=== PATIENT | female | born 1990 | race Caucasian/White ===

== ENCOUNTER 2020-09-07 10:38 | Outpatient (CLI) | payer OTHER, SELFPAY ==
--- NOTE | ~2020-09-07 | US_ITS ---
EXAMINATION: US OB follow up DATE: 09/07/2020 11:23 INDICATION: Incomplete anatomic survey TECHNIQUE: Real-time ultrasound of the pelvis was performed. The interpreting radiologist was not pre sent for the study. COMPARISON: None. FINDINGS: There is a single living fetus in vertex presentation. The placenta is anterior and not low-lying wi th caudal margin 9.7 cm from the internal cervical os. heart rate is 133 beats per minute (bpm) . The amniotic fluid is subjectively normal. The following anatomy was identified as normal: Nasal bone and upper lip Heart cord insertion The following biometric data were obtained: BPD: 6.1 cm -> 24 weeks 6 days Head circumference: 23.5 cm -> 25 weeks 4 days Abdominal circumference: 20.4 cm -> 25 weeks 0 days Femur length: 4.7 cm -> 25 weeks 4 days These measurements are concordant. Head circumference to abdominal circumference ratio: 1.15 (normal range 1.04-1.22). Estimated weight: 788 g (+/-) 118 g. or 1 lbs. 12 oz. (+/-) 4 oz. IMPRESSION: 1. Single living fetus in vertex presentation with heart rate of 133 bpm. 2. Gestational age by ultrasound of 25 weeks 2 day(s) +/- 1 week(s) 5 day(s) with ultrasound estimate d date of delivery (MARTELL) of 12/19/2020. Estimated weight is 58th percentile by Hadlock criteria when 12/22/2020 is used as the MARTELL. Please correlate with clinical information or earlier ultrasounds for most accurate MARTELL. 3. Normal heart, nasal bone, upper lip and cord insertion. Reviewed, dictated and finalized at location A. [employer] IMPRESSION: 1. Single living fetus in vertex presentation with heart rate of 133 bpm. 2. Gestational age by ultrasound of 25 weeks 2 day(s) +/- 1 week(s) 5 day(s) wi th ultrasound estimated date of delivery (MARTELL) of 12/19/2020. Estimated we ight is 58th percentile by Hadlock criteria when 12/22/2020 is used as the MARTELL. Please correlate with clinical information or earlier ultrasounds for most accu rate MARTELL. 3. Normal heart, nasal bone, upper lip and cord insertion.
== END 2020-09-07 10:39 | disposition home or self-care (01) ==
LOC: ANHIMG 10:45
PROVIDERS: PCP Internal Medicine; Visit Provider Obstetrics & Gynecology
DX: Z36.89 Encounter for other specified antenatal screening (principal); Z3A.25 25 weeks gestation of pregnancy
CPT/HCPCS: 76816

== ENCOUNTER 2020-12-14 09:07 | Outpatient (CLI) | payer OTHER, SELFPAY ==
[2020-12-14 09:29] LABS: Hematocrit 35.7 % (37.0-47.0); Mean Corpuscular HGB Conc 33.6 g/dl (32-36); Mean Corpuscular Hemoglobin 29.5 pg (26-34); Mean Corpuscular Volume 87.7 fl (80-100); Mean Platelet Volume 9.7 fl (7.4-10.4); Platelet Count Result 220 k/mm3 (150-375); Red Blood Count 4.07 M/mm3 (4.2-5.4); Red Cell Distribution Width 12.5 % (11.5-14.5); White Blood Count 10.7 K/mm3 (4.5-10.0)
[2020-12-14 13:55] LABS: Rapid Plasma Reagin Non-Reactive (NonReactive)
== END 2020-12-14 09:08 | disposition home or self-care (01) ==
PROVIDERS: PCP Internal Medicine; Visit Provider Obstetrics & Gynecology
DX: Z01.812 Encounter for preprocedural laboratory examination (principal); O34.219 Maternal care for unspecified type scar from previous cesarean delivery; Z3A.39 39 weeks gestation of pregnancy
CPT/HCPCS: 36415; 85027; 86592; 86850; 86900; 86901

== ENCOUNTER 2020-12-15 11:28 | Inpatient (IN) | payer OTHER, SELFPAY ==
[2020-12-15] VITALS (47 sets, daily range): BP systolic 86–142; BP diastolic 47–88; PULSE 67–138; RESP 15–18; TEMP 36.6–37.2; O2SAT 99–100; BMI 34.5
[2020-12-15] MEDS: LACTATED RINGERS 1,000 ML 125 ML IV CONT ×2 (12:21→13:34)
--- NOTE | 2020-12-15 12:48 | LDADM ---
This patient, Estrella Eastman, was admitted to Labor/Delivery/Recovery 118 on 12/15/20 at 11:28 for repeat section and bilateral tubal ligation. Plans for surgery/ and pain management were discussed with patient. Patient/family oriented to hospital policies and general routines including ID bracelet, bed and alarms, visiting hours, pain management, procedures, bathroom and other care routines, personal items, smoking policy, room service/diet and guest tray routines, infant security routines, and visiting hours. Patient/Family are encouraged to report perceived risks to care and to ask questions if they do not understand what they are told or what they should do. See OBIX for further documentation.
--- NOTE | 2020-12-15 13:57 | WPDANESEPPF ---
Anes - Initial Pre Proc Eval Procedure: Operation Date: 12/15/20 13:30 Proposed Procedures p Repeat Section - Brad Stephenson MD Date/Time: 12/15/20 13:57 Surgeon: Brad Stephenson MD Pre Op Diagnosis: c/s Patient Data Age: 30 Gender: F Height: 5 ft 3 in Weight: 88.5 kg Last Vital Signs Temp 37.2 C 12/15/20 11:45 Pulse 90 12/15/20 12:16 Resp 16 12/15/20 11:45 BP 109/59 L 12/15/20 12:16 Allergies Allergy/AdvReac Type Severity Reaction Status Date / Time No Known Allergies Allergy Verified 12/15/20 12:43 Home Medications Medication Instructions Recorded Confirmed Type No Home Medications 11/22/20 11/22/20 History Patient hx anesthesia problems: none Family hx anesthesia problems: none PMF Family History Family History Other No pertinent family history Social History Social History Smoking status: Never smoker Second hand tobacco smoke exposure: No Substance use: never Gender identity (if verbalized by the patient): Female Spiritual care concerns: No Anes - Eval Final PreProcedure Day of Procedure 12/15/20 13:57 Patient weight: obese Heart: regular rate and rhythm Lungs: clear to auscultation Airway: Mallampati scale class II Neurological: alert and oriented Last oral intake: >/= 8 hours ASA classification: II Emergent: no Anesthetic plan: proceed Anesthesia type and monitoring: regional spinal and standard monitoring Informed Consent: The patient's anesthetic plan and its attendant risks and benefits were discussed with the patient/family/POA. Questions were solicited and answers provided to the satisfaction of the patient/family/POA.
--- NOTE | 2020-12-15 13:59 | PM.IMHP ---
H&P: HPI History of Present Illness Date/Time: 12/15/20 13:59 30 y/o at 39 weeks here for repeat . Also desires permanent contraception with concurrent bilateral tubal ligation. GBS neg. Chief Complaint: Here for c section Review of Systems Review of Systems: All systems reviewed & are unremarkable except as noted in HPI and below PMFSH Surgical History Surgical History History of delivery Family History Family History Other No pertinent family history Social History Social History Smoking status: Never smoker Second hand tobacco smoke exposure: No Substance use: never Gender identity (if verbalized by the patient): Female Spiritual care concerns: No Meds Home Medications and Allergies Home Medications Medication Instructions Recorded Confirmed Type No Home Medications 11/22/20 11/22/20 History Allergies Allergy/AdvReac Type Severity Reaction Status Date / Time No Known Allergies Allergy Verified 12/15/20 12:43 Vital Signs Vital Signs - 24 hr 12/15/20 11:45 12/15/20 11:46 12/15/20 12:02 Temperature 37.2 C Pulse Rate 91 115 H 121 H Respiratory Rate 16 Blood Pressure 125/68 125/64 110/53 L 12/15/20 12:16 Temperature Pulse Rate 90 Respiratory Rate Blood Pressure 109/59 L Exam Const: Orientation/consciousness: patient oriented x3 Other: Well-developed, well-nourished female in no acute distress. Neck: Thyroid: thyroid normal Lymphatic: no lymphadenopathy noted (in neck, axilla or inguinal nodes) Resp: Effort & Inspection: normal respiratory effort Auscultation: clear to auscultation bilaterally Cardio: Rate: regular rate Rhythm: regular rhythm Heart sounds: S1 normal heart sound present and S2 normal heart sound present GI: Other: ABD: Soft, nontender, nondistended, gravid. NST reactive. TOCO: no contractions. No guarding or rebound tenderness. No hepatosplenomegaly. : General: Yes no CVA tenderness Other: Cervix closed, thick. Back/Spine/Pelvis: Back: no CVA tenderness Skin: General skin exam: normal color and no rashes or lesions noted Neuro: General: patient oriented x3 Extrem: Other: Extremities: nontender with no edema Psych: Mental Status: mental status grossly normal Affect: normal affect Assessment and Plan Assessment and plan (1) History of delivery: Code(s): Z98.891 - History of uterine scar from previous surgery Status: Inactive Assessment and Plan: A: IUP at 39 weeks with prior , desiring repeat. Also would like permanent contraception with tubal ligation. P: She understands there are temporary methods of contraception available to her. She understands that there are nonsurgical options as well as surgical options. She understands that tubal ligation will render her permanently sterile. She understands that there is a failure rate associated with tubal ligation, as well as an inherent ectopic gestation risk. Furthermore, she understands risks of surgery to include risks of anesthesia, risks of pain, infection, bleeding, blood products, thromboembolic phenomena and damage to adjacent structures such as bowel, bladder, ureters, blood vessels and nerves. She understands all these risks and elects to proceed with repeat low transverse delivery with concurrent bilateral tubal ligation. She has received the ACOG pamphlet on surgical sterilization. (2) Unwanted fertility: Code(s): Z30.09 - Encounter for other general counseling and advice on contraception Status: Acute
--- NOTE | 2020-12-15 14:02 | WPDHPUPDATE1 ---
History and Physical Update Update Date/Time: 12/15/20 14:02 History and Physical has been reviewed, including an updated exam of the patient. There are NO changes in the patient's condition. Risks, benefits, and alternatives have been discussed and questions answered. Patient agrees to proceed with procedure.
[2020-12-15] MEDS: ceFAZolin 2 GM/D5W 50 ML 2 GM/50 ML BAG IVPB (14:25)
--- NOTE | 2020-12-15 15:27 | P.PCNOB_ITS ---
OB - Delivery Note Procedure Procedure: Procedures Operation Date: 12/15/20 13:30 Actual Procedures Side Surgeon p Repeat Section and Bilateral Tubal Ligation Bilateral Brad Stephenson MD Repeat low transverse delivery with concurrent bilateral tubal ligation via modified Monik technique Delivery monitor: external FHT and external uterine Route of delivery: Specimen: Yes (cord blood, segments of bilateral Fallopian tubes) Quantitative Blood Loss (ml): 650 Anesthesia type: Spinal Disposition: PACU Complications: None Narrative: The patient was taken to the operating room where she was prepared and draped in the usual sterile fashion in dorsal supine position with a leftward tilt. She received cefazolin preoperatively. Spinal anesthesia was found to be adequate. A Pfannenstiel skin incision was made along the previous scar line and was carried through to the underlying layer of the fascia. The fascia was incised in the midline and the incision was extended laterally. The fascia was dissected free of the underlying rectus muscles. The rectus muscles were in the midline. The peritoneum was identified, tented up and entered sharply. The peritoneal incision was extended superiorly and inferiorly with good visualization of the bladder. The bladder blade was placed. The vesicouterine peritoneum was identified, tented up and entered sharply. The i ncision was extended laterally and the bladder flap was developed. The bladder blade was replaced. The uterus was then incised sharply in a transverse fashion along the lower uterine segment. The incision was extended laterally. The 's head was delivered atraumatically to the sterile field, followed by the body. The nose and mouth were bulb suctioned. After a delay, the cord was clamped and cut. The was handed off the field. Cord blood was collected. The placenta was removed manually and was passed off the field. The uterus was exteriorized and cleared of all clots and debris. The uterine incision was reapproximated using 0 Monocryl in a running, locked fashion. Excellent hemostasis resulted as did excellent reapproximation of the normal anatomy. The left fallopian tube was then identified by following it out to the fimbriated end. It was grasped in the midportion with a [place]lington clamp and a loop of tube was ligated with a free tie of 0 plain gut. The tubal segment was then transected and the specimen was passed off to be sent to pathology. Hemostasis was excellent. Attention was turned to the right fallopian tube which was similarly identified, ligated and transected. Once again, excellent hemostasis resulted. The uterus was returned the abdomen. The pelvis was irrigated copiously with warmed normal saline. Rigorous hemostasis was assured. The fascial layer was reapproximated using 0 Vicryl in a running fashion. The skin was closed with a running, subcuticular stitch of 4 0 Vicryl. Dermaflex was applied externally. Sponge, lap, needle and instrument counts were correct. The patient was taken to the recovery room in stable condition. The went to the nursery in stable condition. I was present and scrubbed the entire procedure. [place] [facility] Date of : 12/15/20 Time of : 14:54 Weeks of gestation at delivery: 39 gender: Female Weight (pounds): 7 Weight (ounces): 4 presentation: vertex Placenta delivery description: Manual Removal and Normal Configuration cord vessel description: 3 Vessels and Delayed Cord Clamping score one minute: 9 score five minutes: 9
--- NOTE | 2020-12-15 15:29 | PM.OBDSVD ---
DS: Admitting Diagnosis Admitting Diagnosis Admitting Diagnosis: IUP at 39 weeks Prior Desired sterility DS: Discharge Diagnosis Discharge Diagnosis (1) History of delivery: Code(s): Z98.891 - History of uterine scar from previous surgery Status: Acute (2) Unwanted fertility: Code(s): Z30.09 - Encounter for other general counseling and advice on contraception Status: Acute OB - DS: Summary OB Procedures : None OB Procedures Intrapartum: OB Procedures: : None Peripartum Data Procedures: Procedures Operation Date: 12/15/20 13:30 Actual Procedures Side Surgeon p Repeat Section and Bilateral Tubal Ligation Bilateral Brad Stephenson MD Discharge Plan Discharge Attending physician on discharge: Brad Stephenson Consulting providers: Magdaleno Hudson Discharging Clinician: Brad Stephenson Patient Disposition: Home, Self-Care Activity: may shower, may drive after 2 weeks and pelvic rest Diet: regular Wound Care Instructions: incision open to air Discharge Instructions: Education: Mom and Baby Guide Given to: Mother Follow-Up: Call your delivering provider's office for an appointment to be seen in: 1 Week Mom and baby should come to the [facility] for the follow-up appointment. Appointment Date/Time: December 18, 2020 at 11:00 am What to expect at your follow-up visit: Blood Pressure Check Call [phone] if you are unable to keep your appointment time. BREAST CARE: * Wear a snug supportive bra. * For engorgement discomfort: Bottle Feeding: * May apply ice packs ABDOMINAL INCISION: (if applicable) * Allow incision to air dry * Do NOT use lotions for powders on your incision * When showering, allow soap and water to run over the incision, but do not wash incision PERINEAL CARE: * Until bleeding stops, use your page bottle after urinating * Change your pad frequently throughout the day * No tub baths until seen by your physician - You may shower ACTIVITY: * Rest as much as possible. * Do not exercise or lift anything heavier than your baby (such as laundry or other children.) * Avoid stairs or driving as much as possible. * Do not put anything into the vagina. No douching, tampons, or sexual activity until seen by physician. NOTIFY PHYSICIAN IF YOU HAVE ANY QUESTIONS OR IF ANY OF THE FOLLOWING SYMPTOMS OCCUR: * If your iincision becomes red, swollen, or more painful than what you have experienced in the hospital. * If your vaginal bleeding becomes foul smelling. * If your vaginal bleeding becomes more heavy than a period or if your bleeding changes from pink to bright red. However, you may pass an occasional walnut-sized clot once or twice for the first week . * If you experience a sharp, shooting pain in you calves. * If you discover a hard, reddened area on your breast or if you experience flu-like symptoms. *If you have a fever of 100.4 or greater DIET: * Eat regular, well-balanced meals. * Drink plenty of fluids daily. If , drink to thirst.Call or return if temperature above 100.4? F, increased abdominal pain, increased vaginal bleeding or any new problems. Stand Alone Forms: General Discharge Information Follow-up/Referrals: Brad Stephenson MD [Physician] - 4 Weeks Discharge Medications: New ibuprofen 600 mg tablet 600 mg PO Q6H PRN (Reason: cramps) Qty: 30 RF: 0 hydrocodone-acetaminophen 5-325 mg tablet 1 - 2 tablet PO Q6H PRN (Reason: pain) Qty: 30 RF: 0 No Action No Home Medications RF: 0 Date of admission: 12/15/20 11:28 Primary Care Provider: Luke Moreno Admitting Provider: Brad Stephenson Attending physician on admission: Ab Frost Condition: Stable
--- NOTE | 2020-12-15 16:18 | SUR.PHASEI ---
Dr. Stephenson returned page and informed pt had voided just prior to going back to OR and had not had anything to eat or drink since a bowl of cereal last night at 2130. Initial urine output in recovery was 25 ml and pt just had another 30 ml yellow urine in just under an hour. Order received for 500 ml of LR bolus.
[2020-12-15] MEDS: LACTATED RINGERS 1,000 ML 999 ML IV CONT (16:48)
[2020-12-15] MEDS: OXYTOCIN 30 UNITS/NS 500 ML 30 UNITS/500 ML BAG 125 UNITS IV CONT (16:48)
[2020-12-15] MEDS: ONDANSETRON INJ 4 MG/2 ML VIAL IV PUSH (17:16)
[2020-12-15] MEDS: diphenhydrAMINE HCl INJ 50 MG/ML VIAL 25 MG IV PUSH (18:00)
--- NOTE | 2020-12-15 18:12 | OBPPTRN ---
Patient transferred to post room #286 via stretcher. Support person present. Oriented to unit, room, information board, rooming in, admission packet and security measures. Patient verbalizes understanding.
[2020-12-15] MEDS: SCOPOLAMINE 1.5 MG PATCH TRANSDERM (19:01)
[2020-12-15] MEDS: KETOROLAC 30 MG/ML VIAL (*BKC) IV PUSH (19:04)
[2020-12-15] MEDS: DEXTROSE 5%/0.45% SOD CHL 1,000 ML 125 ML IV CONT (21:27)
[2020-12-15] MEDS: HYDROcodone/acetaminophen (*CRX) 5-325 MG TABLET 1 TAB PO (22:30)
[2020-12-16 04:00] VITALS: BP 100/51; PULSE 73; RESP 16; TEMP 36.8; O2SAT 97
[2020-12-16] MEDS: HYDROcodone/acetaminophen (*CRX) 5-325 MG TABLET 1 TAB PO ×4 (05:26→17:59)
[2020-12-16] MEDS: IBUPROFEN 600 MG TABLET PO ×3 (05:26→17:59)
[2020-12-16 05:38] LABS: Basophils Percent Auto 0.1 % (0.2-1.2); Hematocrit 29.6 % (37.0-47.0); Immature Granulocyte Absolute 0.15 K/mm3 (0.00-0.031); Immature Granulocyte Percent A 0.9 % (0-0.5); Lymphocytes Absolute Auto 1.38 K/mm3 (0.9-3.2); Lymphocytes Percent Auto 7.8 % (18.3-44.2); Mean Corpuscular HGB Conc 33.8 g/dl (32-36); Mean Corpuscular Hemoglobin 30.4 pg (26-34); Monocytes Absolute Auto 1.1 K/mm3 (0.1-0.6); Monocytes Percent Auto 6.1 % (2.6-8.5); Neutrophils Percent Auto 85.1 % (45.5-73.1); Platelet Count Result 188 k/mm3 (150-375); Red Blood Count 3.29 M/mm3 (4.2-5.4); Red Cell Distribution Width 12.7 % (11.5-14.5); White Blood Count 17.6 K/mm3 (4.5-10.0)
--- NOTE | 2020-12-16 07:30 | PC.NURSE ---
PT introductions made and plan of care discussed per post op c section, pain management, bottle feeding, daily care activities. PT verbalized understanding of such care. Will continue to educate pt according to maternal child guide and policy. no barriers to learning noted and discussion will be one to one. PT verbalized understanding of such care.
[2020-12-16 07:40] VITALS: BP 102/48; PULSE 51; RESP 18; TEMP 36.5; O2SAT 98
--- NOTE | 2020-12-16 07:45 | WPDANLDPN2 ---
Anes-Prog Note L&D Date/Time: 12/16/20 07:45 Comfortable throughout: section Neuraxial method: spinal Epidural/Spinal procedure site: clean & non-tender Neuro status: Neuro function grossly intact. Cardiovascular status: normal Respiratory status: normal Airway patency: baseline Mental status: baseline Post-Op hydration status: normal Vital Signs: Last Vital Signs Temp 36.8 C 12/16/20 04:00 Pulse 73 12/16/20 04:00 Resp 16 12/16/20 04:00 BP 100/51 L 12/16/20 04:00 Pulse Ox 97 12/16/20 04:00 Pain score (VAS): 3 I/O: Intake & Output 12/15/20 12/15/20 12/16/20 15:59 23:59 07:59 Intake Total 1050 1200 1980 Output Total 137 386 0288 Balance 615 309 173 Post-procedural complaints: none Patient feedback: Patient satisfied with anesthetic care.
--- NOTE | 2020-12-16 07:45 | WPDANLDNPN2 ---
Anes-Prog Note L&D-Neuraxial Date/Time: 12/16/20 07:45 Neuraxial medications: intrathecal PF morphine Opiod-related complaints: none Patient feedback: Patient satisfied with post-operative pain management.
[2020-12-16] MEDS: SIMETHICONE 80 MG TAB.CHEW PO ×3 (09:11→17:58)
[2020-12-16] MEDS: DOCUSATE SODIUM 100 MG CAPSULE PO ×2 (09:12→17:59)
[2020-12-16 09:14] VITALS: PULSE 51; RESP 18; O2SAT 98
[2020-12-16 12:02] VITALS: BP 118/58; PULSE 51; RESP 16; TEMP 36.6; O2SAT 98
--- NOTE | 2020-12-16 12:41 | P.PNOB_ITS ---
OB - PN: Subj Subjective Date/time seen: 12/16/20 12:41 Narrative: Pain OK. Tolerating diet. OB - PN: Obj Data Labs CBC & Chem 7: 12/16/20 05:21 Labs: Laboratory Results - last 24 hr 12/16/20 05:21 WBC 17.6 H RBC 3.29 L Hgb 10.0 L Hct 29.6 L MCV 90.0 MCH 30.4 MCHC 33.8 RDW 12.7 Plt Count 188 MPV 10.0 Immature Gran % (Auto) 0.9 H Neut % (Auto) 85.1 H Lymph % (Auto) 7.8 L [place] % (Auto) 6.1 Eos % (Auto) 0.0 Baso % (Auto) 0.1 L Lymph # (Auto) 1.38 [place] # (Auto) 1.1 H Eos # (Auto) 0.0 Baso # (Auto) 0.0 Abs Immat Gran (auto) 0.15 H Absolute Neuts (auto) 15.0 H Absolute Nucleated RBC 0.0 Nucleated RBC % 0.0 OB - PN A/P Plan Comments: A: POD#1, doing well. P: Routine care. Exam Narrative: Exam Narrative: AVSS I/O OK ABD soft, nontender, fundus firm. Incision c/d/i. EXT nontender
[2020-12-16 20:10] VITALS: BP 104/60; PULSE 63; RESP 16; TEMP 36.4; O2SAT 99
[2020-12-17] MEDS: IBUPROFEN 600 MG TABLET PO ×2 (00:10→10:32)
[2020-12-17] MEDS: ACETAMINOPHEN 325 MG TABLET 650 MG PO ×2 (00:10→10:31)
--- NOTE | 2020-12-17 07:20 | PM.OBDSVD ---
DS: Admitting Diagnosis Admitting Diagnosis Admitting Diagnosis: repeat section at term OB - DS: Summary OB Procedures : None OB Procedures Intrapartum: OB Procedures: : None Peripartum Data Infant Delivery Method: Section Procedures: Procedures Operation Date: 12/15/20 13:30 Actual Procedures Side Surgeon p Repeat Section and Bilateral Tubal Ligation Bilateral Brad Stephenson MD complications: none Status at Discharge Functional status at discharge: independent ambulation Overall status at discharge: patient is progressing back to baseline Time Spent with Patient Time attestation: Total time spent providing and/or coordinating discharge services: Time spent: Less than 30 minutes Exam Const: General: comfortable and no acute distress Resp: Effort & Inspection: normal respiratory effort Auscultation: clear to auscultation bilaterally Cardio: Rate: regular rate GI: Inspection: non-distended GI Palp: Yes Soft to palpation, No Firmness to palpation present (GI), Yes Tenderness to palpation present (GI) (mild tenderness over incision ) and No Guarding due to palpation present (GI) Auscultation: normal bowel sounds Psych: Appearance: grossly normal Mental Status: mental status grossly normal DS: Data Data Completed and Pending Pending studies at discharge: Pending at discharge 12/15/20 15:05 Surgical [PTH] Routine Discharge Plan Discharge Attending physician on discharge: Brad Stephenson Discharging Clinician: Brad Stephenson Patient Disposition: Home, Self-Care Activity: may shower, may drive after 2 weeks and pelvic rest Diet: regular Wound Care Instructions: incision open to air Discharge Instructions: Education: Mom and Baby Guide Given to: Mother Follow-Up: Call your delivering provider's office for an appointment to be seen in: 1 Week Mom and baby should come to the [facility] for the follow-up appointment. Appointment Date/Time: December 18, 2020 at 11:00 am What to expect at your follow-up visit: Blood Pressure Check Call [phone] if you are unable to keep your appointment time. BREAST CARE: * Wear a snug supportive bra. * For engorgement discomfort: Bottle Feeding: * May apply ice packs ABDOMINAL INCISION: (if applicable) * Allow incision to air dry * Do NOT use lotions for powders on your incision * When showering, allow soap and water to run over the incision, but do not wash incision PERINEAL CARE: * Until bleeding stops, use your page bottle after urinating * Change your pad frequently throughout the day * No tub baths until seen by your physician - You may shower ACTIVITY: * Rest as much as possible. * Do not exercise or lift anything heavier than your baby (such as laundry or other children.) * Avoid stairs or driving as much as possible. * Do not put anything into the vagina. No douching, tampons, or sexual activity until seen by physician. NOTIFY PHYSICIAN IF YOU HAVE ANY QUESTIONS OR IF ANY OF THE FOLLOWING SYMPTOMS OCCUR: * If your iincision becomes red, swollen, or more painful than what you have experienced in the hospital. * If your vaginal bleeding becomes foul smelling. * If your vaginal bleeding becomes more heavy than a period or if your bleeding changes from pink to bright red. However, you may pass an occasional walnut-sized clot once or twice for the first week . * If you experience a sharp, shooting pain in you calves. * If you discover a hard, reddened area on your breast or if you experience flu-like symptoms. *If you have a fever of 100.4 or greater DIET: * Eat regular, well-balanced meals. * Drink plenty of fluids daily. If , drink to thirst.Call or return if temperature above 100.4? F, increased abdominal pain, increased vaginal bleeding or any new problems. Stand Alone Forms: Gene
--- NOTE | 2020-12-17 07:30 | PC.NURSE ---
PT introductions made and plan of care discussed per post op c section, pain management, bottle feeding, daily care activities and pending discharge to home. PT verbalized understanding of such care.
[2020-12-17 08:45] VITALS: BP 111/63; PULSE 65; RESP 16; TEMP 36.7; O2SAT 100
--- NOTE | 2020-12-17 10:00 | PC.NURSE ---
Patient viewed the discharge video Mother & Baby Care, The First Two Weeks . Patient was given the opportunity and encouraged to ask questions. Patient verbalized understanding of information shared and has been given the mother/baby guide for home reference.
[2020-12-17 10:30] VITALS: PULSE 65; RESP 16; O2SAT 100
[2020-12-17] MEDS: SIMETHICONE 80 MG TAB.CHEW PO (10:30)
[2020-12-17] MEDS: DOCUSATE SODIUM 100 MG CAPSULE PO (10:31)
--- NOTE | 2020-12-17 11:15 | PC.NURSE ---
PT received discharge instructions per protocol via one to one discussion, mom baby care guide book. No barriers to learning identified. PT and spouse both recipients of such instructions and verbalized understanding
--- NOTE | 2020-12-17 11:43 | PC.NURSE ---
PT discharged to home ambulatory accompanied by spouse and to waiting car. Follow up appts confirmed
[2020-12-18 09:53] VITALS: BP 125/71; PULSE 85; RESP 20; TEMP 36.9; O2SAT 99
== END 2020-12-17 11:43 | disposition home or self-care (01) | DRG 540 ==
LOC: ANHLDR 15:30 → ANHOB2 12-17 07:13 → ANHLDR 12-20 13:38 → ANHOB2 12-20 13:38
PROVIDERS: Admitting Provider Obstetrics & Gynecology; PCP Internal Medicine; Visit Provider Student in an Organized Health Care Education/Training Program
PROC: 10D00Z1 Extraction of Products of Conception, Low, Open Approach (ICD-10-PCS; CPT 59514; principal; 2020-12-15 13:30)
DX: O34.211 Maternal care for low transverse scar from previous cesarean delivery (principal); Z37.0 Single live birth; Z3A.39 39 weeks gestation of pregnancy; O99.214 Obesity complicating childbirth; E66.9 Obesity, unspecified; Z30.2 Encounter for sterilization
CPT/HCPCS: 36415; 85025; 88302; A9270; J0131; J0690; J1100; J1200; J1885; J2274; J2370; J2405; J2590; J7120

== ENCOUNTER 2022-04-16 17:28 | Observation (INO) | payer OTHER, SELFPAY ==
--- NOTE | ~2022-04-16 | XR_ITS ---
EXAMINATION: XR ERCP DATE: 04/18/2022 12:00 CDT INDICATION: STONES . TECHNIQUE: 7 fluoroscopic images of the right upper quadrant were obtained during ERCP performed by t stella surgeon. I was not present in the operating room. Fluoroscopy exposure time was 101.5 seconds. Cum ulative dose was 20.49 mGy. COMPARISON: CT abdomen and pelvis 04/16/2022. FINDINGS: Wire access to the common and right main biliary ducts. Small filling defect in the distal common jennifer e duct. Balloon stripping of the common bile duct. Final images demonstrate removal of the distal obs truction. IMPRESSION: Fluoroscopic documentation of ERCP. Please refer to the operative note for complete procedural detail s . Reviewed, dictated and finalized at location K. IMPRESSION: Fluoroscopic documentation of ERCP. Please refer to the operative note for comp lete procedural details .
--- NOTE | ~2022-04-16 | CT_ITS ---
EXAMINATION: CT abdomen pelvis w con DATE: 04/16/2022 21:45 INDICATION: Right upper quadrant abdominal pain. Abnormal liver function tests. TECHNIQUE: Computed tomography (CT) of the abdomen and pelvis was performed with 100 mL Omnipaque 350 intravenous contrast. Automated exposure control and iterative reconstruction technique were employe d. The dose-length product was 567.19 mGy-cm. COMPARISON: None. FINDINGS: The visualized portions of the lung bases demonstrate mild atelectasis. No pleural effusion . The heart size is normal. No pericardial effusion. There is mild intrahepatic biliary duct dilatati on. There are gallstones in the gallbladder, including in the gallbladder neck. The gallbladder is no rmal in size. There is a 4 mm stone in the common bile duct. The common duct is dilated to 9 mm. The gallbladder, pancreas, adrenal glands, and kidneys are normal. There are no dilated loops of bowel. T he appendix is normal. There are no pathologically enlarged lymph nodes. There is physiologic fluid i n the pelvis. There is mild lumbar spondylosis. IMPRESSION: 1. 4 mm stone in the common bile duct with mild intrahepatic and extrahepatic biliary duct dilatation . 2. Cholelithiasis. Reviewed, dictated and finalized at location A. IMPRESSION: 1. 4 mm stone in the common bile duct with mild intrahepatic and extrahepatic b iliary duct dilatation. 2. Cholelithiasis.
[2022-04-16 17:36] VITALS: BP 138/60; PULSE 104; RESP 18; TEMP 36.8; O2SAT 100
[2022-04-16 19:06] LABS: Basophils Percent Auto 0.5 % (0.2-1.2); Eosinophils Percent Auto 0.1 % (0-4.4); Hematocrit 38.6 % (37.0-47.0); Hemoglobin 12.4 g/dL (12.0-15.0); Immature Granulocyte Absolute 0.02 K/mm3 (0.00-0.031); Immature Granulocyte Percent A 0.3 % (0-0.5); Lymphocytes Absolute Auto 1.12 K/mm3 (0.9-3.2); Lymphocytes Percent Auto 15.1 % (18.3-44.2); Mean Corpuscular HGB Conc 32.1 g/dl (32-36); Mean Corpuscular Hemoglobin 28.2 pg (26-34); Mean Corpuscular Volume 87.9 fl (80-100); Mean Platelet Volume 10.1 fl (7.4-10.4); Monocytes Absolute Auto 0.5 K/mm3 (0.1-0.6); Monocytes Percent Auto 6.9 % (2.6-8.5); Neutrophils Absolute Auto 5.7 K/mm3 (1.3-6.7); Neutrophils Percent Auto 77.1 % (45.5-73.1); Platelet Count Result 300 k/mm3 (150-375); Red Blood Count 4.39 M/mm3 (4.2-5.4); Red Cell Distribution Width 12.3 % (11.5-14.5); White Blood Count 7.4 K/mm3 (4.5-10.0)
[2022-04-16 19:21] LABS: Albumin Level 4.4 g/dL (3.5-5.1); Alkaline Phosphatase 240 U/L (38-126); Anion Gap 9 mmol/L (8-16); Aspartate Amino Transferase 686 U/L (14-36); Bilirubin,Total 1.7 mg/dL (0.2-1.3); Blood Urea Nitrogen 13 mg/dL (7-17); Calcium 9.6 mg/dL (8.4-10.2); Carbon Dioxide 25 mmol/L (22-30); Chloride 101 mmol/L (98-107); Estimated CRCL calculation 103 ml/min; Estimated Glomerular Filt Rate > 60; Glucose 128 mg/dL (65-110); Lipase 99 U/L (23-300); Sodium 135 mmol/L (137-145)
[2022-04-16 19:34] VITALS: BP 127/76; PULSE 95; RESP 16; O2SAT 100
--- NOTE | 2022-04-16 19:35 | ED.ABDPAIN ---
HPI - Abdominal Pain General Chief Complaint: Abdominal Pain Stated Complaint: abd pain Time Seen by Provider: 04/16/22 17:48 History of Present Illness HPI narrative: 31-year-old female presents to the emergency room for evaluation of right upper quadrant pain. Patient reports that she has lactose intolerant, and recently enjoyed some ice cream while on vacation. She states following eating ice cream she started to develop right upper quadrant pain and tenderness. Patient was seen in her primary care's office this past week and was told to order an ultrasound. Patient presents the emergency room requesting an ultrasound to evaluate for rule out cholecystitis. Related Data Allergies Allergy/AdvReac Type Severity Reaction Status Date / Time No Known Allergies Allergy Verified 04/16/22 19:35 Review of Systems Review of Systems: CONSTITUTIONAL: Denies fever, chills, or sweats. EYES: Denies visual changes, redness, or discharge. ENT: Denies rhinorrhea, congestion, sore throat, or otalgia. CARDIOVASCULAR: Denies chest pain, palpitations, or edema. RESPIRATORY: Denies cough or dyspnea. GASTROINTESTINAL: Reports right upper quadrant pain GENITOURINARY: Denies dysuria or hematuria. SKIN: Denies rash or itching. MUSCULOSKELETAL: Denies back pain, joint pain, or myalgia. NEUROLOGIC: Denies headache, numbness, dizziness, or weakness. PSYCHIATRIC: Denies anxiety or depression. [facility] Surgical History Surgical History History of delivery Family History Family History Other No pertinent family history Social History Social History Smoking status: Never smoker Second hand tobacco smoke exposure: No Substance use: never Gender identity (if verbalized by the patient): Female Spiritual care concerns: No Exam Narrative: GENERAL: Well-appearing, well-nourished, no physical limitations, and in no acute distress. HEAD: Normocephalic, atraumatic. EYES: Conjunctivae normal, PERRLA and EOMI. CHEST: Clear to auscultation. No respiratory distress. No wheezes rales or rhonchi. No tenderness. HEART: Regular rate and rhythm. No murmur heard. Normal peripheral pulses. ABDOMEN: Soft, right upper quadrant tenderness, nondistended, normal active bowel sounds. EXTREMITIES: Normal range of motion. No edema. No clubbing or cyanosis SKIN: Warm, dry, no rash. No noted wounds NEURO: No focal deficits. Alert and oriented x3. MAEW. CN's II-XI intact bilaterally, normal gait PSYCH: Cooperative. Normal mood and affect. Course Course Emergency Course: 2299: Discussed case with Dr. Shetty. He is agreeable to admitting the patient under his service. Vital Signs Vital signs: Vital Signs Temperature 36.8 C 04/16/22 17:36 Pulse Rate 104 H 04/16/22 17:36 Respiratory Rate 18 04/16/22 17:36 Blood Pressure 138/60 04/16/22 17:36 Pulse Oximetry 100 04/16/22 17:36 Oxygen Delivery Room Air 04/16/22 17:36 Temperature 36.8 C 04/16/22 17:36 Pulse Rate 97 04/16/22 22:23 Respiratory Rate 16 04/16/22 19:34 Blood Pressure 120/75 04/16/22 22:23 Pulse Oximetry 100 04/16/22 22:23 Oxygen Delivery Room Air 04/16/22 17:36 MDM - Abdominal Pain Lab Data Result diagrams: 04/16/22 18:39 04/16/22 18:39 Labs: Lab Results 04/16/22 04/16/22 04/16/22 Range/Units 18:39 18:39 19:40 WBC 7.4 (4.5-10.0) K/mm3 RBC 4.39 (4.2-5.4) M/mm3 Hgb 12.4 (12.0-15.0) g/dL Hct 38.6 (37.0-47.0) % MCV 87.9 (80-100) fl MCH 28.2 (26-34) pg MCHC 32.1 (32-36) g/dl RDW 12.3 (11.5-14.5) % Plt Count 300 D (150-375) k/mm3 MPV 10.1 (7.4-10.4) fl Immature Gran % (Auto) 0.3 (0-0.5) % Neut % (Auto) 77.1 H (45.5-73.1) % Lymph % (Auto) 15.1 L (18.3-44.2) % [place] % (Auto)
[2022-04-16 19:46] LABS: Add Urine Microscopic? YES; Appearance Urine Clear (Clear); Bilirubin Urine 1+ (Negative); Blood Urine Negative (Negative); Color Urine Yellow (Yellow); Glucose Urine UA Negative (Negative); Ketones Urine Trace mg/dL (Negative); Leukocyte Esterase Ur Negative LEU/UL (Negative); Nitrate Urine Negative (Negative); Protein Urine 1+ mg/dL (Negative); Specific Grav Ur 1.025 (1.001-1.035)
[2022-04-16 19:46] LABS: Alanine Aminotransferase 1113 U/L (6-35)
[2022-04-16 19:50] LABS: Bacteria Urine Trace /hpf; Mucus Urine Heavy /lpf; Squamous Epithelial Cell Urine Moderate /hpf (Few); WBC Urine 0-3 /hpf
[2022-04-16] MEDS: SODIUM CHLORIDE 0.9% IV 1,000 ML 999 ML IV CONT (20:28)
[2022-04-16 22:23] VITALS: BP 120/75; PULSE 97; O2SAT 100
[2022-04-16 23:43] LABS: SARS-CoV-2 RNA PCR Negative
[2022-04-17 00:25] VITALS: BP 118/77; PULSE 61; RESP 16; O2SAT 99
[2022-04-17 00:26] VITALS: BP 106/60; PULSE 77; RESP 16; O2SAT 96
[2022-04-17] MEDS: SODIUM CHLORIDE 0.9% IV 1,000 ML 125 ML IV CONT ×4 (00:37→23:59)
[2022-04-17 00:46] VITALS: BP 111/49; PULSE 72; RESP 18; TEMP 36.6; O2SAT 100
[2022-04-17 00:47] VITALS: BMI 31.8
--- NOTE | 2022-04-17 01:13 | ADMGEN ---
This patient, Estrella Eastman, was admitted to [facility] Surg Room 324-01. Patient/family oriented to hospital policies and general routines including ID bracelet, bed and alarms, visiting hours, pain management, procedures, bathroom and other care routines, personal items, smoking policy, room service/diet, and visiting hours. Information on how to activate the Rapid Response Team has been discussed. Patient/Family are encouraged to report perceived risks to care and to ask questions if they do not understand what they are told or what they should do.
[2022-04-17 06:00] VITALS: BP 101/49; PULSE 91; RESP 18; TEMP 35.6; O2SAT 100
--- NOTE | 2022-04-17 11:50 | PM.IMHP ---
H&P: HPI History of Present Illness Date/Time: 04/17/22 11:50 Chief Complaint: Epigastric pain Narrative: This is a 31-year-old woman who presented to the emergency department last night with epigastric pain for the past several days. She states that she has had problems with dairy in the past and thought she might be lactose intolerant. About a year ago she had eaten frozen Custard and had similar epigastric pain. She tried taking Lactaid and eating ice cream couple weeks ago and did not have many symptoms. Few days ago she then had ice cream again and took Lactaid but still had recurrent symptoms. She denies any history of liver problems in the past. She denies any family history of gallbladder problems. She denies any prior history of jaundice, scleral icterus, dark urine. CT in the emergency department showed evidence of cholelithiasis she had significant elevated liver enzymes. She was admitted hospital for further workup and treatment. Review of Systems Review of Systems: All systems reviewed & are unremarkable except as noted in HPI and below Constitutional: Constitutional: Denies chills and Denies fever(s) Eyes: Eyes: Denies change in vision ENT: Denies hearing loss, Denies neck pain and Denies sore throat Cardiovascular: Cardiovascular: Denies chest pain and Denies dyspnea Respiratory: Respiratory: Denies cough, Denies dyspnea and Denies wheezing Gastrointestinal: Gastrointestinal: Reports as per HPI Genitourinary: Genitourinary: Denies hematuria and Denies dysuria Musculoskeletal: Musculoskeletal: Denies arthralgias, Denies joint swelling and Denies neck pain Allergic/Immunologic: Allergic/Immunologic: Denies wheezing PMFSH Past Medical History Medical History (Updated 04/17/22 @ 11:56 by Mingo Little DO) No active medical problems Surgical History Surgical History History of delivery Family History Family History (Updated 04/17/22 @ 11:54 by Mingo Little DO) Other No pertinent family history Social History Social History Smoking status: Never smoker Second hand tobacco smoke exposure: No Alcohol intake: never Substance use: never Gender identity (if verbalized by the patient): Female Spiritual care concerns: No Meds Home Medications and Allergies Home Medications Medication Instructions Recorded Confirmed Type omeprazole 20 mg capsule,delayed 20 mg PO DAILY PRN acid reflux #30 04/11/22 04/17/22 Rx release caps Allergies Allergy/AdvReac Type Severity Reaction Status Date / Time No Known Allergies Allergy Verified 04/16/22 19:35 Vital Signs Vital Signs - 24 hr 04/16/22 17:36 04/16/22 19:34 04/16/22 22:23 Temperature 36.8 C Pulse Rate 104 H 95 97 Respiratory Rate 18 16 Blood Pressure 138/60 127/76 120/75 Pulse Oximetry 100 100 100 Oxygen Delivery Room Air 04/17/22 00:26 04/17/22 00:25 04/17/22 01:12 Temperature Pulse Rate 77 61 Respiratory Rate 16 16 Blood Pressure 106/60 118/77 Pulse Oximetry 96 99 Oxygen Delivery Room Air 04/17/22 00:46 04/17/22 06:00 04/17/22 08:00 Temperature 36.6 C 35.6 C L Pulse Rate 72 91 Respiratory Rate 18 18 Blood Pressure 111/49 L 101/49 L Pulse Oximetry 100 100 Oxygen Delivery Room Air Exam Const: General: alert; No acute distress Orientation/consciousness: patient oriented x3 Limitations: no limitations HENMT: Head: normocephalic and atraumatic Ears: hearing grossly normal bilaterally General nose exam: Normal external nose present and Normal nares present Mouth: Yes Normal oral and palatal mucosa present and Yes moist mucous membranes Eyes: General: appearance normal, both eyes and all related structures Conjunctivae: conjunctivae normal Sclera: sclerae normal Pupils: Equal, round and reactive pupils present EOM: EOMs intact jennifer
[2022-04-17 14:00] VITALS: BP 118/70; PULSE 79; RESP 17; TEMP 36.7; O2SAT 99
--- NOTE | 2022-04-17 14:17 | WPDGICN ---
Assessment and Plan Assessment and plan (1) Calculus of gallbladder and bile duct with acute cholecystitis, with obstruction: Code(s): K80.63 - Calculus of gallbladder and bile duct with acute cholecystitis with obstruction Status: Acute Assessment and Plan: surgery on board will proceed with ercp tomorrow since found stone in bile duct this was discussed in detail with patient, explained low risk of pancreatitis (2) Transaminitis: Code(s): R74.01 - Elevation of levels of liver transaminase levels Status: Acute Assessment and Plan: related to biliary finding monitor and repeat labs will need cholecystectomy in near future (3) Hyperbilirubinemia: Code(s): E80.6 - Other disorders of bilirubin metabolism Status: Acute (4) Right upper quadrant abdominal pain: Code(s): R10.11 - Right upper quadrant pain Status: Acute Assessment and Plan: control with pain med (5) History of delivery: Code(s): Z98.891 - History of uterine scar from previous surgery Status: Acute GI Consult Note Consult date/time: 04/17/22 14:17 Reason for consult: elevated liver enzymes, choledocholithiasis HPI: Estrella Eastman is a 31 year old female with no major medical history other that previous who for last 2 weeks has been having intermittent and recurrent epigastric pain, moderate intensity and finally decided to come to ER. CT scan a/p reviewed and showed evidence of cholelithiasis, 4 mm stone in the common bile duct with mild intrahepatic and extrahepatic biliary duct dilatation. Also significant elevated liver enzymes with bili 1.7, transaminases 600-1100.?No pancreatitis. She is feeling better right now. Review of Systems Review of Systems: All systems reviewed & are unremarkable except as noted in HPI and below Constitutional: Constitutional: Denies chills and Denies fever(s) Eyes: Eyes: Denies change in vision ENT: Denies hearing loss, Denies neck pain and Denies sore throat Cardiovascular: Cardiovascular: Denies chest pain and Denies dyspnea Respiratory: Respiratory: Denies cough, Denies dyspnea and Denies wheezing Gastrointestinal: Gastrointestinal: Reports as per HPI Genitourinary: Genitourinary: Denies hematuria and Denies dysuria Musculoskeletal: Musculoskeletal: Denies arthralgias, Denies joint swelling and Denies neck pain Allergic/Immunologic: Allergic/Immunologic: Denies wheezing PMFSH Past Medical History Medical History (Updated 04/17/22 @ 11:56 by Mingo Little DO) No active medical problems Surgical History Surgical History History of delivery Family History Family History (Updated 04/17/22 @ 11:54 by Mingo Little DO) Other No pertinent family history Social History Social History Smoking status: Never smoker Second hand tobacco smoke exposure: No Alcohol intake: never Substance use: never Gender identity (if verbalized by the patient): Female Spiritual care concerns: No Meds Home Medications and Allergies Home Medications Medication Instructions Recorded Confirmed Type omeprazole 20 mg capsule,delayed 20 mg PO DAILY PRN acid reflux #30 04/11/22 04/17/22 Rx release caps Allergies Allergy/AdvReac Type Severity Reaction Status Date / Time No Known Allergies Allergy Verified 04/16/22 19:35 Vital Signs Vital Signs - 24 hr 04/16/22 17:36 04/16/22 19:34 04/16/22 22:23 Temperature 98.2 F Pulse Rate 104 H 95 97 Respiratory Rate 18 16 Blood Pressure 138/60 127/76 120/75 Pulse Oximetry 100 100 100 Oxygen Delivery Room Air 04/17/22 00:26 04/17/22 00:25 04/17/22 01:12 Temperature Pulse Rate 77 61 Respiratory Rate 16 16 Blood Pressure 106/60 118/77 Pulse Oximetry 96 99 Oxygen Delivery Room Air 04/17/22 00:
[2022-04-17 22:00] VITALS: BP 118/67; PULSE 80; RESP 18; TEMP 37.3; O2SAT 100
[2022-04-18] VITALS (15 sets, daily range): BP systolic 97–136; BP diastolic 58–70; PULSE 52–92; RESP 18–24; TEMP 35.8–36.9; O2SAT 98–100
[2022-04-18 06:16] LABS: Hemoglobin 10.5 g/dL (12.0-15.0); Mean Corpuscular HGB Conc 30.9 g/dl (32-36); Mean Corpuscular Hemoglobin 28.4 pg (26-34); Mean Corpuscular Volume 91.9 fl (80-100); Mean Platelet Volume 9.9 fl (7.4-10.4); Platelet Count Result 235 k/mm3 (150-375); Red Cell Distribution Width 12.5 % (11.5-14.5); White Blood Count 5.8 K/mm3 (4.5-10.0)
[2022-04-18 06:38] LABS: Albumin Level 3.4 g/dL (3.5-5.1); Alkaline Phosphatase 170 U/L (38-126); Anion Gap 5 mmol/L (8-16); Aspartate Amino Transferase 175 U/L (14-36); Bilirubin,Total 0.5 mg/dL (0.2-1.3); Blood Urea Nitrogen 4 mg/dL (7-17); Carbon Dioxide 27 mmol/L (22-30); Chloride 106 mmol/L (98-107); Estimated CRCL calculation 91 ml/min; Estimated Glomerular Filt Rate > 60; Glucose 94 mg/dL (65-110); Potassium 3.7 mmol/L (3.4-5.0); Sodium 138 mmol/L (137-145)
[2022-04-18 06:44] LABS: Alanine Aminotransferase 838 U/L (6-35)
[2022-04-18] MEDS: SODIUM CHLORIDE 0.9% IV 1,000 ML 125 ML IV CONT ×2 (08:05→23:44)
--- NOTE | 2022-04-18 10:50 | PC.NURSE ---
To Donna Burton via wheelchair
[2022-04-18] MEDS: LACTATED RINGERS 1,000 ML 150 ML IV CONT (11:04)
--- NOTE | 2022-04-18 11:24 | WPDANESEPPF ---
Anes - Initial Pre Proc Eval Procedure: Operation Date: 04/18/22 12:00 Proposed Procedures p Endoscopic Retro Cholangiopancreatogram - Campbell Ball MD Date/Time: 04/18/22 11:24 Surgeon: Mingo Little DO Pre Op Diagnosis: Cholecystitis Patient Data Age: 31 Gender: F Height: 1.6 m Weight: 81.7 kg Last Vital Signs Temp 98.1 F 04/18/22 10:58 Pulse 85 04/18/22 10:58 Resp 18 04/18/22 10:58 BP 136/70 04/18/22 10:58 Pulse Ox 100 04/18/22 10:58 O2 Del Method Room Air 04/18/22 10:58 Allergies Allergy/AdvReac Type Severity Reaction Status Date / Time No Known Allergies Allergy Verified 04/18/22 10:56 Home Medications Medication Instructions Recorded Confirmed Type omeprazole 20 mg capsule,delayed 20 mg PO DAILY PRN acid reflux #30 04/11/22 04/18/22 Rx release caps Laboratory Tests 04/18/22 04/18/22 05:51 05:51 WBC 5.8 K/mm3 K/mm3 (4.5-10.0) RBC 3.70 M/mm3 L M/mm3 (4.2-5.4) Hgb 10.5 g/dL L g/dL (12.0-15.0) Hct 34.0 % L % (37.0-47.0) MCV 91.9 fl fl (80-100) MCH 28.4 pg pg (26-34) MCHC 30.9 g/dl L g/dl (32-36) RDW 12.5 % % (11.5-14.5) Plt Count 235 k/mm3 k/mm3 (150-375) MPV 9.9 fl fl (7.4-10.4) Sodium 138 mmol/L mmol/L (137-145) Potassium 3.7 mmol/L mmol/L (3.4-5.0) Chloride 106 mmol/L mmol/L (98-107) Carbon Dioxide 27 mmol/L mmol/L (22-30) Anion Gap 5 mmol/L L mmol/L (8-16) BUN 4 mg/dL L D mg/dL (7-17) Creatinine 0.80 mg/dL mg/dL (0.7-1.0) Estim Creat Clear Calc 91 ml/min ml/min Estimated GFR > 60 (59 - ) Glucose 94 mg/dL mg/dL (65-110) Calcium 8.0 mg/dL L mg/dL (8.4-10.2) Total Bilirubin 0.5 mg/dL mg/dL (0.2-1.3) AST 175 U/L H U/L (14-36) ALT 838 U/L H U/L (6-35) Alkaline Phosphatase 170 U/L H U/L (38-126) Total Protein 6.0 g/dL L g/dL (6.3-8.2) Albumin 3.4 g/dL L g/dL (3.5-5.1) Patient hx anesthesia problems: none Family hx anesthesia problems: none Results Review: All pre-operative results and documents have been reviewed as part of the pre-operative evaluation. [facility] Past Medical History Medical History (Updated 04/17/22 @ 11:56 by Mingo Little DO) No active medical problems Surgical History Surgical History History of delivery Family History Family History (Updated 04/17/22 @ 11:54 by Mingo Little DO) Other No pertinent family history Social History Social History Smoking status: Never smoker Second hand tobacco smoke exposure: No Alcohol intake: never Substance use: never Gender identity (if verbalized by the patient): Female Spiritual care concerns: No Anes - Eval Final PreProcedure Day of Procedure 04/18/22 11:24 Patient weight: overweight Heart: regular rate and rhythm Lungs: clear to auscultation Airway: Mallampati scale class II Neurological: alert and oriented Last oral intake: >/= 8 hours ASA classification: II Emergent: no Anesthetic plan: proceed Anesthesia type and monitoring: general ETT and standard monitoring Results Review: All pre-operative results and documents have been reviewed as part of the pre-operative evaluation. Informed Consent: The patient's anesthetic plan and its attendant risks and benefits were discussed with the patient/family/POA. Questions were solicited and answers provided to the satisfaction of the patient/family/POA.
[2022-04-18] MEDS: INDOMETHACIN 50 MG SUPP.RECT RECTAL (12:06)
[2022-04-18] MEDS: fentaNYL CITRATE INJ (*CRX) 100 MCG/2 ML VIAL 25 MCG IV PUSH ×2 (13:00→13:36)
--- NOTE | 2022-04-18 14:15 | PC.NURSE ---
Back from [facility] via stretcher
--- NOTE | 2022-04-18 15:39 | WPDANESEPPF ---
Anes - Initial Pre Proc Eval Procedure: Operation Date: 04/19/22 15:00 Proposed Procedures p Laparoscopic Cholecystectomy Possible Open - Mingo Little DO Date/Time: 04/18/22 15:39 Surgeon: Mingo Little DO Pre Op Diagnosis: Cholecystitis Patient Data Age: 31 Gender: F Height: 1.6 m Weight: 81.7 kg Last Vital Signs Temp 35.8 C L 04/18/22 14:26 Pulse 64 04/18/22 14:26 Resp 18 04/18/22 14:26 BP 133/65 04/18/22 14:26 Pulse Ox 98 04/18/22 14:26 O2 Del Method Room Air 04/18/22 13:44 Allergies Allergy/AdvReac Type Severity Reaction Status Date / Time No Known Allergies Allergy Verified 04/18/22 10:56 Home Medications Medication Instructions Recorded Confirmed Type omeprazole 20 mg capsule,delayed 20 mg PO DAILY PRN acid reflux #30 04/11/22 04/18/22 Rx release caps Laboratory Tests 04/18/22 04/18/22 05:51 05:51 WBC 5.8 K/mm3 K/mm3 (4.5-10.0) RBC 3.70 M/mm3 L M/mm3 (4.2-5.4) Hgb 10.5 g/dL L g/dL (12.0-15.0) Hct 34.0 % L % (37.0-47.0) MCV 91.9 fl fl (80-100) MCH 28.4 pg pg (26-34) MCHC 30.9 g/dl L g/dl (32-36) RDW 12.5 % % (11.5-14.5) Plt Count 235 k/mm3 k/mm3 (150-375) MPV 9.9 fl fl (7.4-10.4) Sodium 138 mmol/L mmol/L (137-145) Potassium 3.7 mmol/L mmol/L (3.4-5.0) Chloride 106 mmol/L mmol/L (98-107) Carbon Dioxide 27 mmol/L mmol/L (22-30) Anion Gap 5 mmol/L L mmol/L (8-16) BUN 4 mg/dL L D mg/dL (7-17) Creatinine 0.80 mg/dL mg/dL (0.7-1.0) Estim Creat Clear Calc 91 ml/min ml/min Estimated GFR > 60 (59 - ) Glucose 94 mg/dL mg/dL (65-110) Calcium 8.0 mg/dL L mg/dL (8.4-10.2) Total Bilirubin 0.5 mg/dL mg/dL (0.2-1.3) AST 175 U/L H U/L (14-36) ALT 838 U/L H U/L (6-35) Alkaline Phosphatase 170 U/L H U/L (38-126) Total Protein 6.0 g/dL L g/dL (6.3-8.2) Albumin 3.4 g/dL L g/dL (3.5-5.1) Patient hx anesthesia problems: none Family hx anesthesia problems: none Results Review: All pre-operative results and documents have been reviewed as part of the pre-operative evaluation. [facility] Past Medical History Medical History (Updated 04/17/22 @ 11:56 by Mingo Little DO) No active medical problems Surgical History Surgical History History of delivery Family History Family History (Updated 04/17/22 @ 11:54 by Mingo Little DO) Other No pertinent family history Social History Social History Smoking status: Never smoker Second hand tobacco smoke exposure: No Alcohol intake: never Substance use: never Gender identity (if verbalized by the patient): Female Spiritual care concerns: No Anes - Eval Final PreProcedure Day of Procedure 04/18/22 15:39 Patient weight: obese Heart: regular rate and rhythm Lungs: clear to auscultation Airway: Mallampati scale class II Neurological: alert and oriented Last oral intake: >/= 8 hours ASA classification: II Emergent: no Anesthetic plan: proceed Anesthesia type and monitoring: general ETT and standard monitoring Results Review: All pre-operative results and documents have been reviewed as part of the pre-operative evaluation. Informed Consent: The patient's anesthetic plan and its attendant risks and benefits were discussed with the patient/family/POA. Questions were solicited and answers provided to the satisfaction of the patient/family/POA.
--- NOTE | 2022-04-18 18:59 | PM.PNGS ---
Progress Note: A&P Assessment and Plan (1) Calculus of gallbladder and bile duct with acute cholecystitis, with obstruction: Code(s): K80.63 - Calculus of gallbladder and bile duct with acute cholecystitis with obstruction Status: Acute Assessment and Plan: Discussed ERCP results with Dr. Ball. Will plan to proceed with Laparoscopic cholecystectomy, possible open tomorrow. Discussed procedure, risks, benefits, and alternatives. Questions answered. Subjective Subjective Date/Time Seen: 04/18/22 18:59 Interval history: Doing well after ERCP today. Had some epigastric pain after procedure, but feeling better now. Exam GI: Inspection: non-distended GI Palp: Yes Soft to palpation, No Tenderness to palpation present (GI) and No Guarding due to palpation present (GI) Objective Data Vital Signs Vital Signs: Vital Signs - 24 hr 04/17/22 20:00 04/17/22 22:00 04/18/22 06:00 Temperature 37.3 C 36.2 C L Pulse Rate 80 82 Respiratory Rate 18 18 Blood Pressure 118/67 111/59 L Pulse Oximetry 100 100 Oxygen Delivery Room Air 04/18/22 09:17 04/18/22 08:05 04/18/22 10:58 Temperature 36.7 C Pulse Rate 92 85 Respiratory Rate 18 Blood Pressure 136/70 Pulse Oximetry 99 100 Oxygen Delivery Room Air Room Air Room Air 04/18/22 12:34 04/18/22 12:44 04/18/22 12:54 Temperature 36.7 C Pulse Rate 71 65 61 Respiratory Rate 24 H 24 H 24 H Blood Pressure 98/58 L 113/70 100/66 Pulse Oximetry 100 100 100 Oxygen Delivery Room Air Room Air Room Air 04/18/22 13:04 04/18/22 13:14 04/18/22 13:24 Temperature Pulse Rate 58 L 52 L 52 L Respiratory Rate 22 H 22 H 18 Blood Pressure 111/69 107/61 103/59 L Pulse Oximetry 100 100 100 Oxygen Delivery Room Air Room Air Room Air 04/18/22 13:34 04/18/22 13:44 04/18/22 14:26 Temperature 35.8 C L Pulse Rate 55 L 52 L 64 Respiratory Rate 20 20 18 Blood Pressure 97/58 L 105/61 133/65 Pulse Oximetry 100 100 98 Oxygen Delivery Room Air Room Air Intake/Output Intake/Output: Intake & Output 04/15/22 04/16/22 04/17/22 04/18/22 23:59 23:59 23:59 23:59 Intake Total 1000 3760 2820 Output Total 1150 2400 Balance 1000 2610 420 Meds/Results Medications: Active Medications Generic Name Dose Route Start Last Admin Trade Name Freq PRN Reason Stop Dose Admin Hydromorphone HCl 0.5 mg 04/16/22 23:03 Hydromorphone Hcl Inj (*Crx) 1 Mg/Ml Syr IV PUSH Q4H PRN Pain Rated 7-10 Sodium Chloride 1,000 mls @ 125 mls/hr 04/16/22 23:05 04/18/22 08:05 Normal Saline Iv IV CONT 125 mls/hr .Q8H MONA Administration Ondansetron HCl 4 mg 04/16/22 23:03 Ondansetron Inj 4 Mg/2 Ml Vial IV PUSH Q4H PRN Nausea Radiology Results: ITS Impressions Abdomen/Pelvis CT 04/17/22 08:10 IMPRESSION: 1. 4 mm stone in the common bile duct with mild intrahepatic and extrahepatic biliary duct dilatation. 2. Cholelithiasis. Endo Retro Cholangiopancreatogram 04/18/22 15:15 IMPRESSION: Fluoroscopic documentation of ERCP. Please refer to the operative note for complete procedural details . Labs Labs: Laboratory Results - last 24 hr 04/18/22 04/18/22 05:51 05:51 WBC 5.8 RBC 3.70 L Hgb 10.5 L Hct 34.0 L MCV 91.9 MCH 28.4 MCHC 30.9 L RDW 12.5 Plt Count 235 MPV 9.9 Sodium 138 Potassium 3.7 Chloride 106 Carbon Dioxide 27 Anion Gap 5 L BUN 4 L D Creatinine 0.80 Estim Creat Clear Calc 91 Estimated GFR > 60 Glucose 94 Calcium 8.0 L Total Bilirubin 0.5 AST 175 H ALT 838 H Alkaline Phosphatase 170 H Total Protein 6.0 L Albumin 3.4 L
[2022-04-19] VITALS (14 sets, daily range): BP systolic 94–126; BP diastolic 58–73; PULSE 50–85; RESP 11–20; TEMP 35.9–37.1; O2SAT 99–100
[2022-04-19] MEDS: SODIUM CHLORIDE 0.9% IV 1,000 ML 125 ML IV CONT (06:39)
[2022-04-19] MEDS: CHLORHEXIDINE GLUCONATE 4% SOL 120 ML BTL 1 APPLIC TOPICAL (06:39)
--- NOTE | 2022-04-19 07:44 | WPDANESPN ---
Anes - Prog Note Post-Op Date/Time: 04/19/22 07:44 Cardiovascular status: normal Respiratory status: normal Airway patency: baseline Mental status: baseline Post-Op hydration status: normal Vital Signs: Last Vital Signs Temp 96.7 F L 04/19/22 06:00 Pulse 83 04/19/22 06:00 Resp 20 04/19/22 06:00 BP 111/62 04/19/22 06:00 Pulse Ox 100 04/19/22 06:00 O2 Del Method Room Air 04/18/22 21:34 Pain Score (VAS): 09/19 I/O: Intake & Output 04/18/22 04/18/22 04/19/22 15:59 23:59 07:59 Intake Total 1700 1120 1550 Output Total 1800 350 Balance 1700 -680 1200 Laboratory Tests 04/18/22 05:51 04/18/22 05:51 Post-procedural complaints: none Patient Feedback: Patient satisfied with anesthetic care.
--- NOTE | 2022-04-19 12:33 | WPDGIPROGNO ---
Progress Note: A&P Assessment and Plan (1) Calculus of gallbladder and bile duct with acute cholecystitis, with obstruction: Code(s): K80.63 - Calculus of gallbladder and bile duct with acute cholecystitis with obstruction Status: Acute Assessment and Plan: treated with ercp she is doing ok, on pain and no complications cholecystectomy today (2) Transaminitis: Code(s): R74.01 - Elevation of levels of liver transaminase levels Status: Acute Assessment and Plan: expect that will start trending down now will follow [place], call if questions (3) Right upper quadrant abdominal pain: Code(s): R10.11 - Right upper quadrant pain Status: Acute Subjective Date/time seen: 04/19/22 12:33 Interval history: doing well, no pain or nausea. ERCP yesterday with clean bile duct, did not find stone but swept multiple times after sphincterotomy Review of Systems Review of Systems: All systems reviewed & are unremarkable except as noted in HPI and below Exam Const: General: comfortable and no acute distress HENMT: General nose exam: Normal nares present Eyes: General: appearance normal, both eyes and all related structures Neck: Neck: no JVD Resp: Auscultation: clear to auscultation bilaterally Cardio: Rate: regular rate Rhythm: regular rhythm GI: Inspection: non-distended GI Palp: Yes Soft to palpation Skin: General skin exam: normal color Neuro: General: gait normal Speech: normal speech Extrem: General: normal to inspection Psych: Mental Status: mental status grossly normal Objective Data Vital Signs Vital Signs: Vital Signs - 24 hr 04/18/22 12:34 04/18/22 12:44 04/18/22 12:54 Temperature 98.1 F Pulse Rate 71 65 61 Respiratory Rate 24 H 24 H 24 H Blood Pressure 98/58 L 113/70 100/66 Pulse Oximetry 100 100 100 Oxygen Delivery Room Air Room Air Room Air 04/18/22 13:04 04/18/22 13:14 04/18/22 13:24 Temperature Pulse Rate 58 L 52 L 52 L Respiratory Rate 22 H 22 H 18 Blood Pressure 111/69 107/61 103/59 L Pulse Oximetry 100 100 100 Oxygen Delivery Room Air Room Air Room Air 04/18/22 13:34 04/18/22 13:44 04/18/22 14:26 Temperature 96.4 F L Pulse Rate 55 L 52 L 64 Respiratory Rate 20 20 18 Blood Pressure 97/58 L 105/61 133/65 Pulse Oximetry 100 100 98 Oxygen Delivery Room Air Room Air 04/18/22 22:00 04/18/22 20:00 04/18/22 21:34 Temperature 98.5 F Pulse Rate 71 71 Respiratory Rate 20 20 Blood Pressure 114/64 Pulse Oximetry 99 99 99 Oxygen Delivery Room Air Room Air 04/19/22 06:00 Temperature 96.7 F L Pulse Rate 83 Respiratory Rate 20 Blood Pressure 111/62 Pulse Oximetry 100 Oxygen Delivery Intake/Output Intake/Output: Intake & Output 04/16/22 04/17/22 04/18/22 04/19/22 23:59 23:59 23:59 23:59 Intake Total 1000 3760 3820 1550 Output Total 1150 2400 650 Balance 1000 2610 1420 900 Meds/Results Medications: Active Medications Generic Name Dose Route Start Last Admin Trade Name Freq PRN Reason Stop Dose Admin Hydromorphone HCl 0.5 mg 04/16/22 23:03 Hydromorphone Hcl Inj (*Crx) 1 Mg/Ml Syr IV PUSH Q4H PRN Pain Rated 7-10 Sodium Chloride 1,000 mls @ 125 mls/hr 04/16/22 23:05 04/19/22 06:39 Normal Saline Iv IV CONT 125 mls/hr .Q8H MONA Administration Ondansetron HCl 4 mg 04/16/22 23:03 Ondansetron Inj 4 Mg/2 Ml Vial IV PUSH Q4H PRN Nausea Radiology Results: ITS Impressions Abdomen/Pelvis CT 04/17/22 08:10 IMPRESSION: 1. 4 mm stone in the common bile duct with mild intrahepatic and extrahepatic biliary duct dilatation. 2. Cholelithiasis. Endo Retro Cholangiopancreatogram 04/18/22 15:15 IMPRESSION: Fluoroscopic documentation of ERCP. Please refer to the operative note for complete procedural details . Labs Labs: Laboratory Results - last 24 hr 04/19/22 07:15 Blood Type A Positive Antibody Screen Negative A
[2022-04-19] MEDS: LACTATED RINGERS 1,000 ML 30 ML IV CONT ×2 (15:22→16:55)
--- NOTE | 2022-04-19 15:32 | WPDHPUPDATE1 ---
History and Physical Update Update Date/Time: 04/19/22 15:32 History and Physical has been reviewed, including an updated exam of the patient. There are NO changes in the patient's condition. Risks, benefits, and alternatives have been discussed and questions answered. Patient agrees to proceed with procedure.
[2022-04-19] MEDS: ceFAZolin 2 GM/D5W 50 ML 2 GM/50 ML BAG IVPB (15:53)
[2022-04-19] MEDS: BUPIVACAINE/EPINEPHRINE 0.25% 50 ML VIAL INFILTRATE (16:18)
--- NOTE | 2022-04-19 16:56 | W.PM.PROC2 ---
Procedure Note - Detailed Date of Procedure 04/19/22 Pre-op Diagnosis Cholecystitis Post-op Diagnosis Same Procedure Performed Laparoscopic Cholecystectomy Surgeon Mingo Little, DO Anesthesia General and Local (0.5% bupivacaine) Indications This is a 31-year-old woman who presented to the emergency department with right upper quadrant abdominal pain. She had a CT which showed evidence of cholelithiasis and a 4 mm stone in the distal common bile duct. Her liver enzymes were significantly elevated on admission. She underwent ERCP on 04/18/2022. Discussions were made with the patient about further treatment and decision was made to proceed with laparoscopic cholecystectomy, possible open. Findings Laparoscopic cholecystectomy was performed. The cystic duct appeared slightly dilated and there appeared to be several stones at the neck of the gallbladder. There was some mild edema of the gallbladder wall. There did appear to be 1 reactive lymph node near the neck of the gallbladder as well. The gallbladder otherwise appeared normal. The gallbladder was removed and sent to the lab for pathology. Description of Procedure Procedure as well as risks, benefits, and alternatives were discussed with patient. Written consent was obtained and placed in chart prior to procedure. The patient was brought back to surgical suite. Patient was placed in supine position on operating table. Time-out was done to confirm patient and procedure. Patient was then intubated by the anesthesia department. Abdomen was prepped and draped in sterile fashion using chlorhexidine prep. 0.5% bupivacaine with epinephrine was infiltrated at each site of incision. A 5 millimeter incision was made near the umbilicus, and a 5 millimeter Optiview trocar was advanced through the abdominal layers under direct visualization. Once inside the abdominal cavity, carbon dioxide was insufflated to create a pneumoperitoneum. The camera was inserted and the abdomen was inspected. No immediate abnormalities were identified. The patient was placed in reverse Trendelenburg position and rotated slightly to the left. An 11 millimeter incision was made in the subxiphoid region, and an 11 millimeter trocar was inserted under direct visualization. Two 5 millimeter incisions were made in the right upper quadrant, and two 5 millimeter trocars were inserted under direct visualization. The gallbladder was identified and grasped at the fundus and retracted superiorly. It was then grasped at the infundibulum retracted laterally. Careful dissection around the neck of the gallbladder was performed using blunt dissection with a [place] grasper and hook electrocautery. The cystic duct was identified, and a window was created behind it. The cystic artery was also identified and a window was created behind it. The critical view of safety was identified, visualizing the cystic duct running directly into the neck of the gallbladder, and the cystic artery running directly into the wall of the gallbladder. A 5 millimeter clip sub arc operator was then used to place 2 clips proximally and 1 clip distally on both the cystic duct and cystic artery. They were then both transected using endoscopic scissors. Once safely away from the laura hepatitis, the gallbladder was dissected free from the liver bed using hook electrocautery. Hemostasis was achieved along the way. The gallbladder was removed completely and then removed through the subxiphoid port. The liver bed was then inspected. Hemostasis appeared adequate, and our clips appeared secure. The area was gently irrigated with sterile saline. No other abnormalities were seen. The patient was flattened out in bed, and 1 final inspection was made around the abdominal cavity. The subxiphoid port was removed, and a Barney Jorge Luis cone was used to approximate the fascia with an 0-Vicryl simple interrupted suture. The remaining ports were then removed under direct visualization,
[2022-04-19] MEDS: fentaNYL CITRATE INJ (*CRX) 100 MCG/2 ML VIAL 25 MCG IV PUSH ×4 (17:04→17:47)
[2022-04-19] MEDS: HYDROcodone/acetaminophen (*CRX) 5-325 MG TABLET 1 TAB PO (19:57)
--- NOTE | 2022-04-19 20:30 | PC.NURSE ---
RN arrived to patient room with discharge paperwork; patient's spouse had left for the night. Patient stated, He wasn't sure how long discharge would take and he needs to wake up early for work . Physician to nurse communication order not documented as patient opted to stay overnight . Patient had tolerated clear liquids; pain medication was administered for pain 12/18. Diet was advanced and patient tolerated a turkey sandwich at 2300.
[2022-04-20 00:05] VITALS: BP 126/68; PULSE 62; RESP 20; TEMP 36.5; O2SAT 98
[2022-04-20] MEDS: HYDROcodone/acetaminophen (*CRX) 5-325 MG TABLET 1 TAB PO (00:50)
[2022-04-20 04:05] VITALS: BP 111/61; PULSE 59; RESP 20; TEMP 35.9; O2SAT 98
[2022-04-20] MEDS: IBUPROFEN 600 MG TABLET PO (05:13)
--- NOTE | 2022-04-20 09:10 | WPDANESPN ---
Anes - Prog Note Post-Op Date/Time: 04/20/22 10:20 Cardiovascular status: normal Respiratory status: normal Airway patency: baseline Mental status: baseline Post-Op hydration status: normal Vital Signs: Last Vital Signs Temp 96.7 F L 04/20/22 04:05 Pulse 59 L 04/20/22 04:05 Resp 20 04/20/22 04:05 BP 111/61 04/20/22 04:05 Pulse Ox 98 04/20/22 04:05 O2 Del Method Room Air 04/19/22 19:50 O2 Flow Rate 8 04/19/22 17:10 Pain Score (VAS): 0 I/O: Intake & Output 04/19/22 04/20/22 04/20/22 23:59 07:59 15:59 Intake Total 2500 640 240 Output Total 300 1000 Balance 2200 -360 240 Laboratory Tests 04/18/22 05:51 04/18/22 05:51 Post-procedural complaints: none Patient Feedback: Patient satisfied with anesthetic care.
--- NOTE | 2022-04-20 12:49 | PM.DS ---
DS: Admitting Diagnosis Discharge Date 04/20/22 Admitting Diagnosis Acute calculous cholecystitis with cholelithiasis DS: Discharge Diagnosis Discharge Diagnosis (1) Calculus of gallbladder and bile duct with acute cholecystitis, with obstruction: Code(s): K80.63 - Calculus of gallbladder and bile duct with acute cholecystitis with obstruction Status: Acute DS: Summary Hospital Course Reason for hospitalization: acute cholecystitis, elevated liver enzymes Hospital Course: this is a 31-year-old woman who presented to the emergency department on 04/16/2022 with right upper quadrant pain. She was found to have evidence of acute cholecystitis and elevated liver enzymes. CT showed evidence of cholelithiasis and a 4 mm stone in the distal common bile duct. Gastroenterology was consulted on 04/17/2022 and proceeded with ERCP on 04/18/2022. No bile duct stone was identified on ERCP. Patient likely passed the stone on her own. She then underwent laparoscopic cholecystectomy on 04/19/2022. She was returned to the surgical floor postoperatively. Her diet and activity were slowly advanced as tolerated. On 04/20/2022 she was tolerating her diet and pain was well controlled. She was discharged on 04/20/2022. Status at Discharge Functional status at discharge: independent ambulation Overall status at discharge: patient is progressing back to baseline Time Spent with Patient Time attestation: Total time spent providing and/or coordinating discharge services: Time spent: Less than 30 minutes Exam Const: General: no acute distress and alert Resp: Effort & Inspection: normal respiratory effort Auscultation: clear to auscultation bilaterally Cardio: Rate: regular rate Rhythm: regular rhythm Heart sounds: S1 normal heart sound present and S2 normal heart sound present GI: Inspection: non-distended and incision ( Intact with glue) GI Palp: Yes Soft to palpation, Yes Tenderness to palpation present (GI) ( incisional) and No Guarding due to palpation present (GI) DS: Data Data Completed and Pending Pending studies at discharge: Pending at discharge 04/19/22 16:21 Surgical [PTH] Routine Discharge Plan Discharge Attending physician on discharge: Mingo Hartmann Consulting providers: Campbell Ball Discharging Clinician: Mingo Hartmann Anticipated Discharge Date/Time: 04/19/22 20:00 Patient Disposition: Home, Self-Care Activity: other - see discharge instructions Diet: low fat Wound Care Instructions: other - see discharge instructions Discharge Instructions: DISCHARGE INSTRUCTION SHEET FOR HERNIA, GALLBLADDER AND APPENDIX SURGERIES DR. HARTMANN PATIENT TO TAKE HOME 1. May shower in 24 hours, no soaking in bath x 2weeks. 2. Call office for: Wound increasingly painful or bleeding Vomiting Fever of greater than 101 degrees 3. If no bowel movement for three days, take 1 oz. (30 ml) Milk of Magnesia or MiraLax 17g 1 to 2 times daily. 4. No heavy lifting > 10-15 pounds x weeks for hernia repairs and 2 weeks for laparoscopic cholecystectomy or appendectomy. 5. No driving for 3 days or while taking narcotic pain medications. 6. Ice to surgical site for 48 hours (30 min on, then 30 min off). 7. Up walking 10-30 minutes three times per day. 8. Resume previous home medications. 9. Follow-up 10-14 days in office for wound check or as previously scheduled. ([phone]) 10. Oral pain medications prescription to be sent to pharmacy. Take Tylenol 500mg every 6 hours and Ibuprofen 600mg every 6 hours for the first 2 days, then as needed. 11. NUTRITION: Start out by drinking fluids and increase your diet as tolerated. If you experience nausea, try dry toast, crackers, and 7-UP. If nausea or vomiting persists, contact your surgeon?s office. 12. Gallbladders-Low Fat Diet for 2 weeks (send care not
== END 2022-04-20 09:30 | disposition home or self-care (01) ==
LOC: ANHED 23:09 → ANH3MEDSUR 04-17 00:27
PROVIDERS: Internal Medicine Gastroenterology; Admitting Provider Surgery; Emergency Provider Nurse Practitioner Family; PCP Internal Medicine; Visit Provider Surgery
PROC: (CPT 43260; principal; 2022-04-18 12:00)
PROC: 0FT44ZZ Resection of Gallbladder, Percutaneous Endoscopic Approach (ICD-10-PCS; CPT 47562; principal; 2022-04-19 15:00)
DX: K80.65 Calculus of gallbladder and bile duct with chronic cholecystitis with obstruction (principal); R59.0 Localized enlarged lymph nodes; R74.01 Elevation of levels of liver transaminase levels; E80.6 Other disorders of bilirubin metabolism; E66.3 Overweight; Z68.31 Body mass index [BMI] 31.0-31.9, adult; Z20.822 Contact with and (suspected) exposure to COVID-19; Z79.899 Other long term (current) drug therapy
CPT/HCPCS: 47562; 43262; 43264; 36415; 74177; 74329; 80053; 81001; 81025; 83690; 85025; 85027; 86850; 86900; 86901; 88304; 96360; 99285; A9270; C9803; G0378; G0379; J0330; J0690; J1100; J2250; J2405; J2704; J3010; J7030; J7120; Q9967; U0003; U0005